=== PATIENT | male | born 1975 | race American Indian/Alaskan Native ===

== ENCOUNTER 2019-09-02 00:27 | Emergency (ER) | payer SELFPAY ==
[2019-09-02 03:16] VITALS: BP 143/68
--- NOTE | 2019-09-02 03:23 | Emergency Department Report ---
ED Lower Extremity HPI - General Chief Complaint: Extremity Injury, Lower Stated Complaint: R LEG PAIN Time Seen by Provider: 09/02/19 02:45 Source: patient Mode of arrival: Ambulatory Limitations: No Limitations - History of Present Illness Initial Comments: This is a 43-year-old -[place] male that presents to the emergency room with right hip pain for 1 week. Patient states he does not recall injury. Past medical history of hypertension and HIV. Patient states he is currently taking medication daily for blood pressure and HIV and do not think symptoms are related. States pain is intermittent achy intensity. He denies swelling, bruising, warmth to the area, numbness or tingling, radiating pain, weakness. MD Complaint: hip injury Onset/Timin -: week(s) Injury: Hip: Right Type of Injury: unknown Severity: moderate Severity scale (0 -10): 6 Improves With: NSAID Worsens With: movement Associated Symptoms: ambulatory Treatments Prior to Arrival: NSAIDS - Related Data Allergies Allergy/AdvReac Type Severity Reaction Status Date / Time No Known Allergies Allergy Unverified 09/02/19 02:03 ED Review of Systems ROS: Stated complaint: R LEG PAIN Other details as noted in HPI Constitutional: denies: chills, fever Respiratory: denies: cough, shortness of breath, wheezing Cardiovascular: denies: chest pain, palpitations Gastrointestinal: denies: abdominal pain, nausea, diarrhea Musculoskeletal: arthralgia (Right hip pain). denies: back pain, joint swelling Skin: denies: rash, lesions Neurological: denies: headache, weakness, paresthesias Psychiatric: denies: anxiety, depression ED Past Medical Hx - Past Medical History Previous Medical History?: Yes Hx Hypertension: Yes - Surgical History Past Surgical History?: Yes Additional Surgical History: Hernia - Social History Smoking Status: Current Every Day Smoker Substance Use Type: Alcohol, Marijuana ED Physical Exam - General Limitations: No Limitations General appearance: alert, in no apparent distress, obese - Respiratory Respiratory exam: Present: normal lung sounds bilaterally. Absent: respiratory distress - Cardiovascular Cardiovascular Exam: Present: regular rate, normal rhythm. Absent: systolic murmur, diastolic murmur, rubs, gallop - GI/Abdominal GI/Abdominal exam: Present: soft, normal bowel sounds. Absent: distended, tenderness, guarding, rebound, rigid - Extremities Exam Extremities exam: Present: normal inspection - Expanded Lower Extremity Exam Right Hip exam: Present: full ROM. Absent: tenderness, swelling, abrasion, laceration, ecchymosis, deformity, crepidus, dislocation, erythema, external rotation, internal rotation, shortening, pelvic stability Upper Leg exam: Present: full ROM. Absent: tenderness, swelling, abrasion, laceration, ecchymosis, deformity, crepidus, dislocation, erythema Knee exam: Present: normal inspection, full ROM Lower Leg exam: Present: normal inspection, full ROM Ankle exam: Present: normal inspection, full ROM Foot/Toe exam: Present: normal inspection, full ROM Neuro vascular tendon exam: Present: no vascular compromise Gait: Positive: observed and normal - Neurological Exam Neurological exam: Present: alert, oriented X3, normal gait - Psychiatric Psychiatric exam: Present: normal affect, normal mood - Skin Skin exam: Present: warm, dry, intact, normal color. Absent: rash ED Course Vital Signs 09/02/19 09/02/19 00:30 03:15 Temperature 98.0 F Pulse Rate 90 71 Respiratory 18 18 Rate Blood Pressure 174/109 Blood Pressure 143/68 [Right] O2 Sat by Pulse 99 99 Oximetry ED Lower Extremity MDM - Medical Decision Making 43-year-old male complaining of right hip pain. Patient is nontoxic appearing and stable. Normal hip exam. Past medical history of hypertension and HIV. During exam patient admits to, to the emergency room because he drunk some alcohol 2 weeks ago after receiving treatment for STDs and was afraid he possibly messed up his treatment. Patient informed treatment is less likely tampered after 24 hours. Right hip pain of unknown causes. Given history, e xam, and work-up, there is low suspicion for acute fracture, osteomyelitis, or any other infection. Instructed to continue taking NSAIDs for pain management and try rice therapy. He was given strict return precautions. Patient discharged with prompt follow-up with primary care physician. Critical care attestation.: If time is entered above; I have spent that time in minutes in the direct care of this critically ill patient, excluding procedure time. ED Disposition Clinical Impression: Acute right hip pain Disposition: TO HOME OR SELFCARE Is pt being admited?: No Condition: Stable Instructions: Arthralgia (ED) Additional Instructions: Rest Use ice or heat on affected area for 20 minutes and off for 2 hours. Continue taking ibuprofen, naproxen, or Tylenol every 6-8 hours as needed for pain. Follow up with Primary Care Provider in 2-3 days. Referrals: [facility] [Outside] - 3-5 Days [facility] [Outside] - 3-5 Days [facility] [Outside] - 3-5 Days Time of Disposition: 03:28
== END 2019-09-02 03:32 | disposition home or self-care (01) ==
LOC: ED 00:27
DX: M25.551 Pain in right hip (principal); I10 Essential (primary) hypertension; F17.200 Nicotine dependence, unspecified, uncomplicated; F12.10 Cannabis abuse, uncomplicated
CPT/HCPCS: 99282